=== PATIENT | female | born 1950 | race Caucasian/White ===

== ENCOUNTER 2017-12-23 00:20 | Day surgery (SDC) | payer MEDICARE, OTHER ==
[~2017-12-23] VITALS: Ht 167.6 cm; Wt 65.3 kg
[2017-12-23] VITALS (9 sets, daily range): BP systolic 84–115; BP diastolic 51–81
[~2017-12-23 00:20] MED LIST: ACET-2043 PO; ALLO-1 PO; ASCO-182 PO; ASCO100T PO; CALC500T42 PO; CYAN500T38 PO; FEXO30TA36 PO; FISH OIL1 CAP PO; GLUC500T13 PO; IBUP-1502 PO; LOP2 PO; MULT1CAP41 PO; PAR20 PO; PARO-243 PO; VITA100T6 PO; VITA400T7 PO
[2017-12-23] MEDS ORDERED: PROPOFOL EMUL(*) 10MG/ML 20 ML 40 ML ONE (06:59)
[2017-12-23] MEDS: NORMOSOL R SOLN(*) 1000 ML BAG 1,000 ML IV PRN ×2 (07:49→09:54)
[2017-12-23] MEDS ORDERED: LIDOCAINE/SOD BICARB 8.4% SYR ID ONE (08:35)
--- NOTE | 2017-12-23 16:29 | Post Operative Progress Note ---
Post Operative Progress Note Date: Dec 23, 2017 Time: 16:29 Surgeon: khadra Anesthesia: dr ruiz Pre-Op Diagnosis: screening colonoscopy Post-Op Diagnosis: sigmoid diverticulosis Procedure(s): colonoscopy JERONIMO COLON MD Dec 23, 2017 16:29
--- NOTE | 2017-12-23 16:31 | Short(Outpt) Discharge Summary ---
Discharge Summary Reason for Hosp/Final Diag: (1) Encounter for screening colonoscopy Hospital Course & Plan: sigmoid diverticulosis Departure Discharge to: Home Discharge Instructions Home Meds Reported Medications Acetaminophen (ACETAMINOPHEN) 500 Mg Tablet, 0.5 TAB PO BID, TAB 12/18/17 Vitamin E Mixed (VITAMIN E) 400 Unit Tablet, 400 UNIT PO 2XW 12/18/17 Cyanocobalamin (Vitamin B-12) (VITAMIN B-12) 500 Mcg Tablet, 500 MCG PO DAILY 12/18/17 Paroxetine Hcl (PAXIL) 20 Mg Tablet, 40 MG PO QDAY, TAB 12/18/17 Ascorbic Acid (VITAMIN C) 500 Mg Tablet, 500 MG PO BID, TAB 12/18/17 Allopurinol (Allopurinol) 300 Mg Tablet, 100 MG PO QDAY 11/14/06 Multivitamins W-Minerals (Multivitamin) 1 Cap Capsule, 1 CAP PO QDAY 11/14/06 Discontinued Reported Medications Loperamide Hcl (Imodium) 2 Mg Cap, 1 MG PO DAILY 11/14/06 Fexofenadine Hcl (Kimberly) 30 Mg Tablet, 30 MG PO 11/14/06 Vitamin B Complex (B100 Balanced) 1 Tab.sa Tablet.sa, 1 BU PO QDAY 11/14/06 Paroxetine Hcl (Paxil) 20 Mg Tab, 30 MG PO QDAY 11/14/06 Ibuprofen (Ibuprofen) 400 Mg Tablet, 400 MG PO QDAY 11/14/06 Calcium (Calcium) 500 Mg Tablet, 500 MG PO BID 11/14/06 Ascorbic Acid (Vitamin C) 100 Mg Tablet, 1000 MG PO BID 11/14/06 Glucosamine Sulfate (Glucosamine) 500 Mg Tablet, 3000 MG PO QDAY 11/14/06 [place]-3 Fatty Acids (Fish Oil) 1 Cap Capsule, 1000 MG PO QDAY 11/14/06 Diet: Regular Activity: As Tolerated JERONIMO COLON MD Dec 23, 2017 16:31
--- NOTE | 2017-12-24 04:37 | OPERATIVE REPORT 1 ---
EVENT DATE: December 23, 2017 SURGEON: Jaylen Pretty MD ANESTHESIOLOGIST: Nahun Robertson MD ANESTHESIA: Sedation PREOPERATIVE DIAGNOSIS Screening colonoscopy. POSTOPERATIVE DIAGNOSIS Sigmoid diverticulosis. PROCEDURE Colonoscopy. DESCRIPTION OF PROCEDURE Patient was placed in the left lateral decubitus position, given intravenous sedation. Rectal exam was unremarkable. Flexible colonoscope was inserted, advanced to the anastomosis in the transverse colon. This was widely patent, no evidence of inflammation, irritation. She had a good bowel prep. She had some thick liquid stool, but we were able to suction most of that. No abnormalities were noted in the transverse colon or the first portion of the descending colon. In the sigmoid colon, she had multiple diverticula, no evidence of diverticulitis, no narrowings, no inflammation. Care was taken to look behind the haustral folds. No abnormalities were noted in the rectum. Scope was reflexed; that appeared to be normal. [facility]
== END 2017-12-23 18:05 | disposition home or self-care (01) ==
LOC: OR 00:20
PROVIDERS: ATTEND Surgery
DX: Z12.11 Encounter for screening for malignant neoplasm of colon (principal); K57.30 Diverticulosis of large intestine without perforation or abscess without bleeding
CPT/HCPCS: 00812; G0121; J2704